=== PATIENT | female | born 1980 | race Caucasian/White ===

== ENCOUNTER 2019-01-28 22:51 | Emergency (ER) | payer BC ==
[~2019-01-28] VITALS: Ht 170.2 cm; Wt 51.3 kg
[2019-01-28 22:58] VITALS: BP 123/63
[2019-01-28] MEDS ORDERED: predniSONE 20 MG TABLET ONE (23:55)
[2019-01-29] MEDS ORDERED: IPRATROPIUM NEB FS 0.5 MG/2.5 ML AMPUL.NEB NEB ONE
[2019-01-29] MEDS ORDERED: predniSONE 20 MG TABLET PO ONE
[2019-01-29] MEDS ORDERED: ALBUTEROL FS 2.5 MG/3 ML VIAL.NEB NEB ONE
[2019-01-29] MEDS ORDERED: IPRATROPIUM NEB FS 0.5 MG/2.5 ML AMPUL.NEB ONE (00:09)
[2019-01-29] MEDS ORDERED: ALBUTEROL FS 2.5 MG/3 ML VIAL.NEB ONE (00:09)
== END 2019-01-29 00:51 | disposition home or self-care (01) ==
LOC: ER 22:57
DX: J98.01 Acute bronchospasm (principal); M32.9 Systemic lupus erythematosus, unspecified
CPT/HCPCS: 94640; 99283; J7512

== ENCOUNTER 2024-12-08 18:30 | Emergency (ER) | payer BC ==
[~2024-12-08] VITALS: Ht 172.7 cm; Wt 54.4 kg
[2024-12-08 18:42] VITALS: TEMP 98.5
[2024-12-08] MEDS ORDERED: dexaMETHasone SOD PHOSPHATE 1 ML ONE (19:33)
[2024-12-08] MEDS: dexaMETHasone SOD PHOSPHATE 4 MG/ML VIAL IM ONE (19:37)
[2024-12-08 19:47] VITALS: BP 125/80; O2SAT 99
== END 2024-12-08 19:45 | disposition home or self-care (01) ==
LOC: ER 18:33
DX: Q79.60 Ehlers-Danlos syndrome, unspecified (principal); M54.2 Cervicalgia; M79.18 Myalgia, other site; J45.909 Unspecified asthma, uncomplicated
CPT/HCPCS: 99283; 96372; J1100